=== PATIENT | male | born 1940 | race Caucasian/White ===

== ENCOUNTER 2018-02-16 12:55 | Emergency (ER) | payer OTHER, MEDICARE ==
[~2018-02-16] VITALS: Ht 177.8 cm; Wt 105.1 kg
[~2018-02-16 12:55] MED LIST: ASPIR-LOW81 MG PO; ATENOLOL100 MG PO; CELEBREX200 MG PO; DIOVAN160 MG PO; HYDROCODON-ACE1 EAC7 PO; LIPITOR20 MG PO; LOSARTAN POTAS100 MG PO; NAPROSYN500 MG PO; NITROSTAT0.4 MG SL; NORCO 5/3251 TABLET PO; PLETAL100 MG PO; PROSCAR5 MG PO; TAMSULOSIN HCL0.4 MG PO; TYLENOL ARTHRI650 MG PO; ZANTAC300 MG PO
[2018-02-16 13:39] LABS: HEMATOCRIT 40.3 % (38.0-50.0); HEMOGLOBIN 13.8 G/DL (12.5-16.6); MCH 29.9 PG (29.0-34.0); MCHC 34.2 G/DL (30.0-36.0); MCV 87.4 FL (86-99); PLATELET COUNT 251 K/uL (156-360); RBC DIS.WIDTH-CV 12.9 % (11.8-14.6); RBC DIS.WIDTH-SD 41.1 % (39-53); RED BLOOD COUNT 4.61 M/uL (4.00-5.50); WHITE BLOOD COUNT 9.6 K/uL (4.1-10.2)
[2018-02-16 13:50] LABS: CHLORIDE 104 mEq/L (99-109); POTASSIUM 3.7 mEq/L (3.7-5.4); SODIUM 138 mEq/L (136-147)
[2018-02-16 13:53] LABS: GLUCOSE 168 mg/dL (70-99); TOTAL PROTEIN 6.8 g/dL (6.4-8.3)
[2018-02-16 13:55] LABS: TOTAL BILIRUBIN 1.7 mg/dL (0.0-1.0)
[2018-02-16 13:56] LABS: ALKALINE PHOSPHATASE 29 IU/L (3-129); CREATININE 1.1 mg/dL (0.6-1.3); GFR ESTIMATE (CALCULATED) > 59 mL/min/ (58.99-99999)
[2018-02-16 13:57] LABS: UREA NITROGEN (BUN) 20 mg/dL (9-23)
[2018-02-16 13:58] LABS: AST (GOT) 20 IU/L (2-34)
[2018-02-16 13:59] LABS: ALT (GPT) 24 IU/L (3-49)
[2018-02-16 14:48] LABS: APPEARANCE CLEAR ((CLEAR)); BILIRUBIN NEGATIVE; BLOOD NEGATIVE; COLOR YELLOW ((YELLOW)); GLUCOSE (STRIP) NEGATIVE; KETONES NEGATIVE; LEUKOCYTES NEGATIVE; NITRITE NEGATIVE; PROTEIN (STRIP) NEGATIVE; SPECIFIC GRAVITY 1.025 (1.000-1.030); UCUL ADDED? NO; UROBILINOGEN 0.2 MG/DL (0.2-1.0)
[2018-02-16 15:35] LABS: LIPASE 16 U/L (1.0-51.0)
[2018-02-16] MEDS ORDERED: OMEPRAZOLE40 M1 PO (16:37)
[2018-02-16] MEDS ORDERED: ZOFRAN ODT4 MG PO (16:37)
[2018-02-16 16:57] VITALS: BP 122/65
== END 2018-02-16 17:00 | disposition home or self-care (01) ==
LOC: EME 12:55
DX: R11.2 Nausea with vomiting, unspecified (principal); I10 Essential (primary) hypertension; K21.9 Gastro-esophageal reflux disease without esophagitis; Z95.1 Presence of aortocoronary bypass graft; Z79.82 Long term (current) use of aspirin; Z90.49 Acquired absence of other specified parts of digestive tract
CPT/HCPCS: 74176; 80053; 81003; 83690; 85027; 99281; 99284

== ENCOUNTER 2018-04-05 21:44 | Emergency (ER) | payer OTHER, MEDICARE ==
[~2018-04-05] VITALS: Ht 177.8 cm; Wt 104.4 kg
[~2018-04-05 21:44] MED LIST changes: +OMEPRAZOLE40 M1 PO; +ZOFRAN ODT4 MG PO
[2018-04-05 22:28] LABS: HEMOGLOBIN 13.4 G/DL (12.5-16.6); MCH 30.6 PG (29.0-34.0); MCHC 34.4 G/DL (30.0-36.0); PLATELET COUNT 208 K/uL (156-360); RBC DIS.WIDTH-CV 13.1 % (11.8-14.6); RBC DIS.WIDTH-SD 42.7 % (39-53); RED BLOOD COUNT 4.38 M/uL (4.00-5.50); WHITE BLOOD COUNT 7.8 K/uL (4.1-10.2)
[2018-04-05 22:44] LABS: ALBUMIN 4.2 g/dL (3.2-4.8)
[2018-04-05 22:45] LABS: CHLORIDE 103 mEq/L (99-109); POTASSIUM 4.1 mEq/L (3.7-5.4); SODIUM 138 mEq/L (136-147)
[2018-04-05 22:47] LABS: GLUCOSE 166 mg/dL (70-99); TOTAL PROTEIN 6.9 g/dL (6.4-8.3)
[2018-04-05 22:49] LABS: TOTAL BILIRUBIN 1.1 mg/dL (0.0-1.0)
[2018-04-05 22:50] LABS: ALKALINE PHOSPHATASE 28 IU/L (3-129)
[2018-04-05 22:51] LABS: CREATININE 1.2 mg/dL (0.6-1.3); GFR ESTIMATE (CALCULATED) > 59 mL/min/ (58.99-99999)
[2018-04-05 22:52] LABS: AST (GOT) 20 IU/L (2-34); UREA NITROGEN (BUN) 18 mg/dL (9-23)
[2018-04-05 22:54] LABS: ALT (GPT) 21 IU/L (3-49)
[2018-04-06 00:08] LABS: APPEARANCE CLEAR ((CLEAR)); BILIRUBIN NEGATIVE; BLOOD NEGATIVE; COLOR YELLOW ((YELLOW)); GLUCOSE (STRIP) NEGATIVE; KETONES NEGATIVE; LEUKOCYTES NEGATIVE; NITRITE NEGATIVE; PROTEIN (STRIP) NEGATIVE; SPECIFIC GRAVITY 1.023 (1.000-1.030); UCUL ADDED? NO; UROBILINOGEN 0.2 MG/DL (0.2-1.0)
[2018-04-06 00:31] LABS: DIRECT BILIRUBIN 0.4 mg/dL (0.0-0.3); LIPASE 22 U/L (1.0-51.0)
[2018-04-06] MEDS ORDERED: ZOFRAN ODT8 MG PO (02:47)
[2018-04-06] MEDS ORDERED: TAMIFLU75 MG PO (02:47)
[2018-04-06] MEDS ORDERED: TESSALON PERLE100 MG PO (02:50)
[2018-04-06 03:00] VITALS: BP 156/89
== END 2018-04-06 03:01 | disposition home or self-care (01) ==
LOC: EME 21:44
PROVIDERS: Physician Assistant
DX: J11.1 Influenza due to unidentified influenza virus with other respiratory manifestations (principal); R10.13 Epigastric pain; K44.9 Diaphragmatic hernia without obstruction or gangrene; I10 Essential (primary) hypertension; K21.9 Gastro-esophageal reflux disease without esophagitis; Z95.1 Presence of aortocoronary bypass graft; Z90.49 Acquired absence of other specified parts of digestive tract
CPT/HCPCS: 71046; 71260; 74177; 80053; 81003; 82248; 83605; 83690; 85027; 87040; 87502; 93005; 99281; 99285; J7040